=== PATIENT | male | born 1975 | race Caucasian/White ===

== ENCOUNTER 2021-06-19 18:57 | Emergency (ER) | payer OTHER, SELFPAY ==
[~2021-06-19 18:57] MED LIST: Sodium Chloride 0.9% 1,000 ML BAG ONE
[2021-06-19 20:44] LABS: #Basophils 0.2 thou/uL (0.0-0.2); #Eosinphils 0.2 thou/uL (0.0-0.7); #Lymphocytes 3.5 thou/uL (1.20-3.40); #Neutrophils 5.1 thou/uL (1.40-6.50); %Basophils 1.6 % (0.0-1.0); %Eosinophils 1.8 % (0.0-10.0); %Monocytes 10.1 % (0.0-10.0); %Neutrophils 51.4 % (42.0-75.0); Burr Cells SLIGHT = 2-5 cells (100X) (0-1/hpf); Hemoglobin 10.2 g/dL (14.0-18.0); MDiff Complete? YES; Mean Corpuscular HGB CONC 36.2 g/dL (32.0-36.0); Mean Corpuscular Hemoglobin 34.2 pg (27.0-31.0); Mean Corpuscular Volume 94.5 fL (78.0-98.0); Mean Platelet Volume 9.3 fL (7.4-10.4); Platelet Count 66 thou/uL (130-400); Platelet Morphology Comment Appears Decreased; RBC Distribution Width 13.8 % (11.5-14.5); Red Blood Cell (RBC) Count 2.98 mill/uL (4.70-6.10)
[2021-06-19 20:47] LABS: ALT (SGPT) 53 U/L (8-55); AST (SGOT) 121 U/L (5-34); Albumin 3.5 g/dL (3.5-5.0); Alcohol 258 mg/dL (Less than 10); Alkaline Phosphatase 168 U/L (40-110); Anion Gap 14 mmol/L (10-20); BUN (Urea Nitrogen) 11 mg/dL (8.9-20.6); Bilirubin, Total 5.7 mg/dL (0.2-1.2); Calc. Creatinine Clearance 0 mL/min (70-130); Calcium 8.4 mg/dL (7.8-10.44); Carbon Dioxide 21 mmol/L (22-29); Chloride 114 mmol/L (98-107); Globulin 3.3 g/dL (2.4-3.5); Glucose 120 mg/dL (70-105); Potassium 3.9 mmol/L (3.5-5.1); Protein, Total 6.8 g/dL (6.0-8.3); Sodium 145 mmol/L (136-145)
[2021-06-19 21:37] LABS: Bilirubin Negative (Negative); Blood, Urine Negative (Negative); Clarity Clear (Clear); Glucose, Urine (Dipstick) Negative (Negative); Ketone, Urine Negative (Negative); Leukocyte Negative (Negative); Nitrite Negative (Negative); Protein, Urine (Dipstick) Negative (Neg-Trace); Urobilinogen 0.2 mg/dL (Less than 2)
[2021-06-19 21:52] LABS: Amphetamine Not Detected (NotDetected); Barbiturates Screen Not Detected (NotDetected); Benzodiazepine Screen Not Detected (NotDetected); Cocaine Metabolite Screen Not Detected (NotDetected); Medtox Control Line Valid? VALID (VALID); Methadone Not Detected (NotDetected); Methamphetamine Not Detected (NotDetected); Opiate Screen Not Detected (NotDetected); Oxycodone Screen Not Detected (NotDetected); Phencyclidine (PCP) Not Detected (NotDetected); THC/Cannabinoid Screen Not Detected (NotDetected); Tricyclic Screen Not Detected (NotDetected)
== END 2021-06-20 00:34 | disposition short-term general hospital (02) ==
LOC: MADERS 18:57
DX: K72.90 Hepatic failure, unspecified without coma (principal); F10.129 Alcohol abuse with intoxication, unspecified; M54.50 Low back pain, unspecified; M54.2 Cervicalgia; F17.210 Nicotine dependence, cigarettes, uncomplicated; V44.6XXA Car passenger injured in collision with heavy transport vehicle or bus in traffic accident, initial encounter; Y90.8 Blood alcohol level of 240 mg/100 ml or more; Z79.899 Other long term (current) drug therapy
CPT/HCPCS: 70450; 71045; 72125; 72131; 72170; 80053; 80306; 80307; 81003; 82140; 85025; J7050

== ENCOUNTER 2021-09-02 15:38 | Emergency (ER) | payer MEDICAID, SELFPAY ==
[2021-09-02 16:52] LABS: Acetaminophen Less than 10.0 mcg/mL (10.0-30.0); Alcohol 291 mg/dL (Less than 10); CK (CPK) 168 U/L (30-200); INR-International Normal Ratio 1.7; Prothrombin Time 20.2 sec (12.0-14.7); Salicylate Less than 8.0 mg/dL (15.0-30.0)
[2021-09-02 16:53] LABS: PTT 42.2 sec (22.9-36.1)
[2021-09-02 16:55] LABS: ALT (SGPT) 24 U/L (8-55); AST (SGOT) 63 U/L (5-34); Albumin 3.7 g/dL (3.5-5.0); Alkaline Phosphatase 178 U/L (40-110); Anion Gap 15 mmol/L (10-20); BUN (Urea Nitrogen) 11 mg/dL (8.9-20.6); Bilirubin, Total 3.7 mg/dL (0.2-1.2); Calc. Creatinine Clearance 0 mL/min (70-130); Calcium 8.5 mg/dL (7.8-10.44); Carbon Dioxide 22 mmol/L (22-29); Chloride 116 mmol/L (98-107); Estimated GFR 55; Globulin 3.8 g/dL (2.4-3.5); Glucose 146 mg/dL (70-105); Lipase 141 U/L (8-78); Potassium 3.8 mmol/L (3.5-5.1); Protein, Total 7.5 g/dL (6.0-8.3); Sodium 149 mmol/L (136-145)
[2021-09-02 17:05] LABS: #Basophils 0.1 thou/uL (0.0-0.2); #Eosinphils 0.2 thou/uL (0.0-0.7); #Lymphocytes 2.9 thou/uL (1.20-3.40); #Monocytes 0.9 thou/uL (0.11-0.59); #Neutrophils 4.5 thou/uL (1.40-6.50); %Basophils 1.7 % (0.0-1.0); %Eosinophils 2.1 % (0.0-10.0); %Lymphocytes 33.5 % (21.0-51.0); %Monocytes 9.9 % (0.0-10.0); %Neutrophils 52.7 % (42.0-75.0); Hemoglobin 11.7 g/dL (14.0-18.0); Hypochromia SLIGHT = 6-15 cells (100X) (0-5/hpf); MDiff Complete? YES; Mean Corpuscular HGB CONC 34.8 g/dL (32.0-36.0); Mean Corpuscular Hemoglobin 32.5 pg (27.0-31.0); Mean Corpuscular Volume 93.5 fL (78.0-98.0); Mean Platelet Volume 9.5 fL (7.4-10.4); Platelet Count 65 thou/uL (130-400); Platelet Morphology Comment Appears Decreased; RBC Distribution Width 13.9 % (11.5-14.5); Red Blood Cell (RBC) Count 3.61 mill/uL (4.70-6.10); White Blood Cell (WBC) Count 8.5 thou/uL (4.8-10.8)
== END 2021-09-02 18:25 | disposition home or self-care (01) ==
LOC: MADERS 15:38
DX: F10.129 Alcohol abuse with intoxication, unspecified (principal); F17.210 Nicotine dependence, cigarettes, uncomplicated; Y90.8 Blood alcohol level of 240 mg/100 ml or more
CPT/HCPCS: 36415; 70450; 71045; 80053; 80307; 82550; 83605; 83690; 84443; 84484; 85025; 85610; 85730; 87040; 93005; 94760